=== PATIENT | female | born 1960 | race Native Hawaiian/Other Pacific Islander ===

== ENCOUNTER 2021-04-02 18:11 | Outpatient (CLI) | payer OTHER ==
[2021-04-02 18:53] LABS: POTASSIUM 4.5 mmol/L (3.6-5.2)
[2021-04-02 19:08] LABS: PLATELET COUNT 94 K/uL (152-353)
== END 2021-04-02 21:39 | disposition home or self-care (01) ==
LOC: LAB 18:11
PROVIDERS: ATTEND Nurse Practitioner Family
DX: Z00.00 Encounter for general adult medical examination without abnormal findings (principal); R53.83 Other fatigue; R53.81 Other malaise
CPT/HCPCS: 80053; 80061; 82306; 82607; 83036; 84439; 84443; 85027